=== PATIENT | female | born 1990 | race Asian ===

== ENCOUNTER 2016-10-21 11:50 | Emergency (ER) | payer OTHER ==
[~2016-10-21] VITALS: Ht 167.6 cm; Wt 77.1 kg
[2016-10-21 11:59] VITALS: BP 125/85
[2016-10-21] MEDS ORDERED: TETANUS-DIPTH-ACEL PERTUSSIS 0.5ML SYRG IM ONE (13:30)
[2016-10-21 13:31] LABS: Hepatitis B Surface Antibody Positive
== END 2016-10-21 13:59 | disposition home or self-care (01) ==
LOC: ER 11:50
DX: S61.231A Puncture wound without foreign body of left index finger without damage to nail, initial encounter (principal); W27.3XXA Contact with needle (sewing), initial encounter; Y93.89 Activity, other specified; Y99.8 Other external cause status; Y92.89 Other specified places as the place of occurrence of the external cause
CPT/HCPCS: 36415; 86706; 86803; 87340